=== PATIENT | female | born 1955 | race Caucasian/White ===

== ENCOUNTER → 2024-10-07 | Outpatient (CLI) | payer MEDICARE ==
--- NOTE | 2024-10-07 13:57 | CT ---
INDICATION: Patient age:Female; 69 years old; Reason for study: [facility] Protocol for right knee replacement, M17.11 PRIMARY OSTEOARTHRITIS, RIGHT KNEE ; [facility]. COMPARISON: None TECHNIQUE: Thin section axial CT imaging of the entire right lower extremity was performed per [facility] protocol, wi thout the administration of IV contrast. Additional axial images of the bilateral hips and ankles wit h other knee were also obtained. Reformatted images in coronal and sagittal views obtained. FINDINGS: There is no evidence of acute fracture or dislocation. The hips show a mild osteoarthritic change with some subchondral cystic changes in the acetabulum. Left knee arthroplasty change on correspondence representative radiograph. Tricompartmental joint space narrowing with subchondral cystic changes and marginal osteophytosis of the right knee. Most pronounced involving the medial tibiofemoral joint space. Consistent with modera te osteoarthritic change. Small suprapatellar joint effusion. Rosales's cyst identified measuring up to 2.5 cm. The ankles grossly unremarkable. Bilateral plantar calcaneal enthesophytes. The visualized soft tissues appear grossly unremarkable within the limits of unenhanced CT. Sigmoid d iverticulosis. Calcifications within the suspected partially visualized right ovary. Partially visual ized suspected left ovarian 3.1 cm cystic lesion. IMPRESSION: 1. [facility] protocol for right knee joint replacement. 2. Suspected left ovarian cystic 3.1 cm lesion. Pelvic ultrasound is recommended. [facility], , 10/07/2024 1:55 PM
[2024-10-07 14:49] LABS: HCT 42.3 % (34.0-46.0); HGB 13.7 gm/dL (11.4-16.0); MCH 31.5 pg (25.0-35.0); MCHC 32.4 g/dL (31.0-37.0); MCV 97.3 fL (80.0-100.0); Mean Platelet Volume 7.4; Platelet Count 340 k/uL (150-450); RBC 4.34 m/uL (3.80-5.40); RDW 12.7 % (11.5-15.5); WBC 8.1 k/uL (3.8-10.6)
[2024-10-07 15:20] LABS: INR 0.9 (<1.2); Partial Thromboplastin Time 23.7 sec (22.0-30.0); Prothrombin Time 10.1 sec (10.0-12.5)
== END | disposition home or self-care (01) ==
LOC: RADCTMAIN 13:09
PROVIDERS: ATTEND Orthopaedic Surgery
DX: Z01.818 Encounter for other preprocedural examination (principal); Z22.322 Carrier or suspected carrier of Methicillin resistant Staphylococcus aureus; M17.12 Unilateral primary osteoarthritis, left knee; Z96.651 Presence of right artificial knee joint
CPT/HCPCS: 85027; 85610; 85730; 87070

== ENCOUNTER → 2024-10-22 | Outpatient (CLI) | payer MEDICARE ==
[2024-10-22 16:14] LABS: ALT 20 U/L (8-44); AST 20 U/L (13-35); Albumin 4.4 g/dL (3.8-4.9); Albumin/Globulin Ratio 1.63 Ratio (1.60-3.17); Alkaline Phosphatase 56 U/L (41-126); BUN/Creat Ratio 22.29 Ratio (12.00-20.00); Blood Urea Nitrogen 15.6 mg/dL (9.0-27.0); Calcium 10.2 mg/dL (8.7-10.3); Carbon Dioxide 26.6 mmol/L (21.6-31.8); Chloride 104 mmol/L (96-109); Globulin 2.7 g/dL (1.6-3.3); Glucose 127 mg/dL (70-110); Potassium 4.7 mmol/L (3.5-5.5); Sodium 142 mmol/L (135-145); Total Bilirubin 0.3 mg/dL (0.3-1.2); Total Protein 7.1 g/dL (6.2-8.2)
== END | disposition home or self-care (01) ==
LOC: LABWHC1 09:05
PROVIDERS: ATTEND Orthopaedic Surgery
DX: Z01.812 Encounter for preprocedural laboratory examination (principal); E11.9 Type 2 diabetes mellitus without complications
CPT/HCPCS: 36415; 80053; 83036

== ENCOUNTER 2024-10-24 08:04 | Day surgery (SDC) | payer MEDICARE ==
[~2024-10-24 08:04] MED LIST: DEXAMETHASONE SOD PHOSPHATE 10 MG/ML 1 ML VIAL IV PRN; HYDROmorphone 0.5 MG/0.5 ML SYRINGE IVP PRN; LIDOCAINE 1% (10MG/ML) FOR IV START INTRADERMA PRN; ONDANSETRON 4 MG/2 ML VIAL IVP PRN; TRANEXAMIC 1,000 MG/100ML-NACL 1,000 MG in SALINE 1 100ML.BAG IV PRN; TRANEXAMIC 1,000 MG/100ML-NACL 1,000 MG in SALINE 1 100ML.BAG IVPB PRN
[2024-10-24 09:02] LABS: Glucose,Whole Blood 122 mg/dL (70-110)
[2024-10-24] MEDS: IV FLUID CONTINUATION 1,000 ML IV ONE (09:05)
[2024-10-24] MEDS: LACTATED RINGERS 1,000 ML IV SCH (09:10)
[2024-10-24] MEDS: ACETAMINOPHEN TAB 500 MG TAB PO PRN (09:18)
[2024-10-24] MEDS: DOCUSATE 100 MG CAP PO PRN (09:18)
[2024-10-24] MEDS: oxyCODONE ER 10 MG TAB.ER.12H PO PRN (09:18)
[2024-10-24] MEDS: MIDAZOLAM 2 MG/2 ML VIAL IV ONE (09:25)
[2024-10-24] MEDS: HYDROCORTISONE SUCCINATE 100 MG/2 ML VIAL IV STA (09:33)
[2024-10-24] MEDS: FAMOTIDINE 20 MG/2 ML VIAL IVP PRN (09:35)
[2024-10-24] MEDS: KETOROLAC 15 MG/ML 1 ML VIAL IVP PRN (09:35)
[2024-10-24] MEDS: ONDANSETRON 4 MG/2 ML VIAL IVP ONE (09:35)
[2024-10-24] MEDS ORDERED: PHENYLEPHRINE-0.9% NACL SYG 1,000 MCG/10 ML SYRINGE ONE (09:45)
[2024-10-24] MEDS ORDERED: TRANEXAMIC 1,000 MG/100ML-NACL PREMIX BAG ONE (09:45)
[2024-10-24] MEDS ORDERED: MIDAZOLAM 2 MG/2 ML VIAL ONE (09:45)
[2024-10-24] MEDS ORDERED: PROPOFOL 10 MG/ML 20 ML VIAL IV ONE (09:45)
[2024-10-24] MEDS ORDERED: DEXAMETHASONE SOD PHOSPHATE 4 MG/ML 1 ML VIAL ONE (09:45)
[2024-10-24] MEDS ORDERED: ROPIVACAINE 5 MG/ML 30 ML VIAL ONE (09:45)
[2024-10-24] MEDS: ROPIVACAINE/EPI/CLONIDINE/KET 50 ML SYRINGE MISCELLANE PRN (10:21)
[2024-10-24] MEDS: LACTATED RINGERS 1,000 ML IV ONE (10:44)
[2024-10-24] MEDS ORDERED: bisacodyL 10 MG SUPP RECTAL PRN (11:29)
[2024-10-24] MEDS ORDERED: hydrOXYzine pamoate 25 MG CAP PO PRN (11:29)
[2024-10-24] MEDS ORDERED: NA PHOS,M-B/NA PHOS,DI-BA 133 ML ENEMA RECTAL PRN (11:29)
[2024-10-24] MEDS ORDERED: ONDANSETRON 4 MG/2 ML VIAL IVP PRN (11:29)
[2024-10-24] MEDS ORDERED: HYDROmorphone 0.5 MG/0.5 ML SYRINGE IVP PRN ×2 (11:29)
[2024-10-24] MEDS ORDERED: NALOXONE 0.4 MG/ML 1 ML VIAL IV PRN (11:29)
[2024-10-24] MEDS ORDERED: HYDROcodone/APAP 5-325MG 1 EACH TAB PO PRN (11:29)
[2024-10-24] MEDS ORDERED: MAGNESIUM HYDROXIDE 2,400 MG/30 ML CUP PO PRN (11:29)
--- NOTE | 2024-10-24 11:29 | P.OP ---
Date of Procedure: 10/24/24 Preoperative Diagnosis: Severe right knee osteoarthritis Postoperative Diagnosis: Same Procedure(s) Performed: 1. Right total knee arthroplasty 2. Computer assisted musculoskeletal navigation using CT/MRI images Implants: 1. [place] [employer] CR Femur Size #5 2. [place] [employer] [place] Tibial Base Size #4 3. [place] [employer] CS poly Size #4, 9-mm 4. [place] [employer] all poly patella, Size #32 Anesthesia: regional, spinal Surgeon: Damien Garnett Cripple Cutter #1: Juan Dunham Estimated Blood Loss (ml): 100 IV fluids (ml): 800 Pathology: none sent Condition: stable Disposition: PACU Indications for Procedure: I met with the patient preoperatively in the office setting and discussed treatment of their symptomatic knee arthritis. They failed a long course of nonsurgical treatment and elected to proceed with an elective total knee replacement. I discussed the potential risks and complications at length and gave them ample time to ask questions. Risks discussed included: risks from anesthesia, superficial site surgical infection, acute and/or chronic periprosthetic joint infection, delayed wound healing, drainage, wound necrosis, instability, stiffness, stiffness requiring manipulation and/or revision surgery, damage to local blood vessels or nerves, aseptic loosening of the implants, extensor mechanism issues including disruption, patellar maltracking, avascular necrosis etc., continued or worsened knee pain, generalized dissatisfaction with surgical outcome, need for revision surgery, an inability to regain preinjury level of function, DVT, PE, other medical complications, and possibly loss of life or limb. The patient voiced their understanding that while these are the most common complications other less common complications are possible. They provided both their verbal and written consent to go forward with surgery. Operative Findings: Severe tri-compartmental knee osteoarthritis Description of Procedure: The patient was identified in preoperative holding and the correct operative extremity was verified and marked with a marker. I reviewed the consent form with the patient at length. All of their questions were answered. The patient was given a block by anesthesia. They were then brought back to the operating room. They were transferred onto the operating room table where a general anesthetic, preoperative antibiotics, and tranexamic acid were administered by anesthesia. A tourniquet was applied to the proximal aspect of the operative extremity. The contralateral extremity was padded under the heel and secured to the operating room table with a nonsterile blue towel and tape. The ipsilateral arm was carefully draped across the patient's chest and secured with a pillow and foam. A post was applied over the lateral aspect of the ipsilateral thigh and a bolster was placed under the ipsilateral foot. I verified that the operative extremity was stable and the knee was flexed to 90. The operative extremity was then placed in a leg conde, nonsterile drapes were applied, and the extremity was prepped and draped sterilely in the standard sterile fashion. Prior to starting surgery timeout was performed identifying the correct patient, operative extremity, and procedure. The leg was then elevated, exsanguinated with an Esmarch bandage, and the tourniquet was inflated. An anterior midline incision was made sharply with a scalpel. Once I had dissected deep to the superficial fascial layer medial and lateral flaps were elevated. A medial parapatellar arthrotomy was created. Upon opening the knee joint there were diffuse arthritic changes in all 3 compartments. The anterior horn of the medial meniscus were sharply released and a medial release was performed around the posterior medial corner of the knee to facilitate retractor placement. The fat pad was excised with electrocautery. The patella was found to be severely arthritic and a provisional cut was made with a sagittal saw to facilitate mobilization of the extensor mechanism during the procedure. Remnants of the ACL and PCL were then excised from the notch. 4 mm pins were then placed within the incision in the medial distal femur and proximal tibia. Arrays were applied to the pins and I verified they were completely tightened. The knee was then registered with the [employer] robot and manipulations in implant position were made to balance the knee and opitmize implant position. Using the Ronny robotic saw all cuts were made in accordance with our plan. After all bony fragments had been removed the cuts were verified with the planar probe. The tibia was then subluxed forward and sized. The knee was brought into flexion and a lamina gameroom technician was placed to allow removal of the meniscal remnants both medially and laterally as well as posterior osteophytes. Local anesthetic was then infiltrated around the joint capsule. Trial implants were then placed within the knee. Range of motion and collateral ligament tension was then evaluated. Adjustments in implant size and position were then made accordingly. Once the knee was felt to be appropriately balanced the Ronny pins were removed. The patella was then recut, sized, and punched. A trial patellar button was then placed. With the trial components in place, the patella tracked midline. The femur was then drilled and the trial component removed. The trial tibial component was then appropriately rotated, pinned, and prepared for the keel. All trial components were then removed from the knee. The knee was thoroughly irrigated with pulsatile lavage. Cement was prepared via vacuum mixing in a bowl on the back table. I then hand pressurized cement into the femur and tibia and placed the implants beginning with the tibial base tray and poly liner, femoral component, and finally the patellar button. All extruded cement was removed including from the pin sites. Once the cement had hardened the knee was evaluated one final time with the final polyethylene liner in place. The knee had full extension and flexion and felt stable to varus and valgus stress throughout the arc of motion. The tourniquet was released and with the tourniquet down the patella tracked midline. All bleeders were controlled with electrocautery. The knee was then soaked for 3 minutes with a dilute Betadine soak. The knee was thoroughly irrigated using 3 L of sterile saline and pulsatile lavage. The extensor mechanism was then reapproximated using pop off Vicryl sutures followed by a running barbed suture. The knee was then closed in layers with a 0 strata fix for the deep fascial layer, 2-0 strata fix for the superficial subcutaneous layer and Monocryl and Steri-Strips for the skin. A sterile dressing was applied. I verified that all instrument, sponge, and sharp counts were correct. The patient was then transferred off the operating room table, extubated, and brought to recovery having tolerated the procedure well. Juan Dunham PA-C was required as a skilled operational assistant for patient positioning, draping, exposure, retraction, closure of wound and application of dressing PLAN: The patient can weight-bear as tolerated on the operative extremity. DVT prophylaxis with aspirin 81 mg twice a day based on preoperative risk stratification. Internal medicine for perioperative medical management. 2 doses of post-operative antibiotics. Physical therapy for gait training. Follow-up in the office in 2 weeks for wound check and x-rays of the knee including an AP and lateral.
--- NOTE | 2024-10-24 13:13 | XR ---
EXAMINATION TYPE: XR knee limited RT DATE OF EXAM: 10/24/2024 12:19 PM COMPARISON: None. CLINICAL INDICATION: Female, 69 years old with history of Evaluation for Postop abnormality and align ment, TECHNIQUE: 2 view(s) obtained. FINDINGS: Tibial femoral compartment [address] place[address] No acute fractures or dislocations evident. Postsurgical soft tis iona changes are evident. IMPRESSION: 1. No acute osseous abnormality post right knee replacement. [facility], , 10/24/2024 1:11 PM
[2024-10-24] MEDS: HYDROcodone/APAP 10-325MG 1 EACH TAB PO PRN (14:50)
[2024-10-24] MEDS: DEXAMETHASONE SOD PHOSPHATE 4 MG/ML 1 ML VIAL IV ONE (15:38)
[2024-10-24] MEDS: droPERidol 5 MG/2 ML VIAL IVP ONE (15:38)
[2024-10-24] MEDS: SODIUM CHLORIDE 0.9% 1,000 ML IV SCH (15:44)
[2024-10-24] MEDS: HYDROmorphone 0.5 MG/0.5 ML SYRINGE IVP PRN (16:59)
[2024-10-24] MEDS: ASPIRIN 81 MG PO SCH (21:04)
[2024-10-24] MEDS: SENNOSIDES-DOCUSATE SODIUM 1 EACH TAB PO SCH (21:04)
[2024-10-24] MEDS: diazePAM 5 MG TAB PO PRN (21:06)
[2024-10-25 07:21] VITALS: BP 131/73; PULSE 61; RESP 15; TEMP 98.2
--- NOTE | 2024-10-25 07:39 | P.DS ---
Providers Date of admission: 10/24/2024 Attending physician: Damien Garnett Consults: 10/24/24 11:29 Consult Physician Routine Consulting Provider: Sandeep Tapia Consult Reason/Comments: post op medical management Do you want consulting provider notified?: Already Contacted Primary care physician: Yojana Young [facility] Course: The patient is a very pleasant previously healthy 69-year-old female. She was admitted under my care and underwent an uncomplicated total knee replacement. Puncture tissues transferred to the orthopedic floor. She received 2 doses of postoperative antibiotics. She was transitioned from IV to oral pain medication. She was seen by internal medicine. I saw the patient on postoperative day #1 and she was doing well. Her dressing was intact. She had mild swelling in her leg. Femoral nerve function was intact. She is able to actively plantarflex and dorsiflex her ankle and her toes. She worked with physical therapy and a well-padded she was ultimately cleared for discharge home. Patient Condition at Discharge: Good Plan - Discharge Summary Discharge Rx Participant: No New Discharge Prescriptions: New Aspirin 81 mg PO BID #60 tab Docusate [Colace] 100 mg PO BID #60 capsule HYDROcodone/APAP 5-325MG [Dendron 5-325] 1 - 2 tab PO Q6HR PRN #56 tab PRN Reason: Pain Omeprazole [PriLOSEC] 40 mg PO DAILY #30 cap Ondansetron [Zofran] 4 mg PO Q8HR PRN #20 tab PRN Reason: Nausea Celecoxib [Celebrex] 400 mg PO BID #60 cap No Action predniSONE 2.5 mg PO Q2D [place] Extract 1 cap PO DAILY Celecoxib [CeleBREX] 200 mg PO DAILY PRN PRN Reason: pain, swelling predniSONE 5 mg PO Q2D Milk Thistle 150 mg PO DAILY Calcium Carbonate/Vitamin D3 [Calcium 600 mg-Vit D3 10 mcg (400 Unit)] 1 each PO DAILY Discharge Medication List Calcium Carbonate/Vitamin D3 [Calcium 600 mg-Vit D3 10 mcg (400 Unit)] 1 each PO DAILY 10/21/24 [History] Celecoxib [CeleBREX] 200 mg PO DAILY PRN 10/21/24 [History] Milk Thistle 150 mg PO DAILY 10/21/24 [History] [place] Extract 1 cap PO DAILY 10/21/24 [History] predniSONE 2.5 mg PO Q2D 10/21/24 [History] predniSONE 5 mg PO Q2D 10/21/24 [History] Aspirin 81 mg PO BID #60 tab 10/25/24 [Rx] Celecoxib [Celebrex] 400 mg PO BID #60 cap 10/25/24 [Rx] Docusate [Colace] 100 mg PO BID #60 capsule 10/25/24 [Rx] HYDROcodone/APAP 5-325MG [Dendron 5-325] 1 - 2 tab PO Q6HR PRN #56 tab 10/25/24 [Rx] Omeprazole [PriLOSEC] 40 mg PO DAILY #30 cap 10/25/24 [Rx] Ondansetron [Zofran] 4 mg PO Q8HR PRN #20 tab 10/25/24 [Rx] Follow up Appointment(s)/Referral(s): Damien Garnett MD [Medical Doctor] - 2 Weeks Activity/Diet/Wound Care/Special Instructions: 1. Weight-bear as tolerated on your operative extremity unless instructed otherwise. Use a walker or other assistive device to ambulate. 2. Leave surgical dressing in place. If your dressing becomes saturated with blood, there is drainage, or the dressing becomes loose please contact the office. 3. It is okay to shower with your surgical dressing, but do not submerge in water (no hot tubs, bath's, swimming etc.) 4. Make sure to take her blood clot prevention medication as prescribed (aspirin, Eliquis, Xarelto, and Plavix are commonly prescribed medications for blood clot prevention) 5. While taking Dendron or Percocet for pain make sure you're taking a stool softener (Colace) and drink lots of water. 6. Keep all follow-up appointments as scheduled. You will usually be seen in 1-2 weeks following surgery. 7. Please contact the office with any questions or concerns [phone] Discharge Disposition: HOME WITH HOME HEALTH SERVICES
[2024-10-25] MEDS: predniSONE 2.5 MG TAB PO SCH (07:58)
[2024-10-25 09:39] LABS: Basophils # (A) 0.04 X 10*3/uL (0.00-0.10); Basophils % (A) 0.4 %; Eosinophils # (A) 0.08 X 10*3/uL (0.04-0.35); Eosinophils % (A) 0.7 %; HCT 37.2 % (37.2-46.3); HGB 11.5 g/dL (12.0-15.0); Lymphocytes % (A) 13.7 %; MCH 30.7 pg (27.0-32.0); MCHC 30.9 g/dL (32.0-37.0); MCV 99.2 FL (80.0-97.0); Mean Platelet Volume 10.7 FL (9.5-12.2); Monocytes # (A) 0.98 X 10*3/uL (0.20-1.00); NRBC Per 100 WBC 0 X 10*3/uL (0.00-0.01); Neutrophils # (A) 8.29 X 10*3/uL (1.80-7.70); Neutrophils % (A) 75.7 %; Platelet Count 283 X 10*3/uL (140-440); RBC 3.75 X 10*6/uL (4.10-5.20); RDW 12.7 % (11.5-14.5); WBC 10.94 X 10*3/uL (4.50-10.00)
--- NOTE | 2024-10-25 15:05 | P.CONS ---
History of Present Illness - Reason for Consult Consult date: 10/25/24 Medical management Requesting physician: Damien Garnett - Chief Complaint Right knee surgery - History of Present Illness This is a pleasant 69-year-old patient who follows with Dr. Yojana Young. Chronic medical condition include hepatitis C that was treated successfully, polymyalgia rheumatica for which patient is on steroids/prednisone, primary osteoarthritis. Patient stopped smoking 2 weeks ago. Patient yesterday underwent right total knee arthroplasty. Having some pain. No nausea vomiting. Did tolerate some breakfast this morning. Also did amb ulate. at the bedside. No cardiac symptoms. No cardiac history. Review of systems: GEN.: None EYES: None HEENT: None NECK: None RESPIRATORY: None CARDIOVASCULAR: None GASTROINTESTINAL: None GENITOURINARY: None MUSCULOSKELETAL: Joint pain including right knee LYMPHATICS: None Social history: Stopped smoking 2 weeks ago. Smoked for about 15 to 20 years less than a pack a day. Alcohol occasionally. . Physical examination: VITAL SIGNS: 98.2, 61, 15, 131 x 73, 99% room air GENERAL: BMI 24.4, sitting up in the recliner comfortable. EYES: Pupils equal. Conjunctiva zainab l. HEENT: External appearance of nose and ears normal, oral cavity grossly normal. NECK: JVD not raised; masses not palpable. HEART: First and second heart sounds are normal; no edema. LUNGS: Respiratory rate normal; clear to auscultation. ABDOMEN: Soft, nontender, liver spleen not palpable, no masses palpable. PSYCH: Alert and oriented x3; mood and affect zainab l. MUSCULOSKELETAL:No Clubbing/cyanosis;muscles-grossly intact. Dressing of the right knee. Evidence of OA NEUROLOGICAL: Cranial nerves grossly intact; no facial asymmetry, power and sensation grossly intact. LYMPHATICS: No lymph nodes palpable in the axilla and neck INVESTIGATIONS, reviewed in the clinical context: October 25: White count 10.9 hemoglobin 11.5 platelets 283 Assessment plan: -Right total knee arthroplasty Pain controlled. Aspirin for DVT prophylaxis. -Myasthenia gravis Continue with prednisone 2.5 mg and 5 mg alternate day. -Primary osteoarthritis Celebrex. -Probable acute postprocedure blood loss anemia Ferrous sulfate Care was discussed with patient at the bedside. Questions answered. Follow-up with PCP for discharge. Thank you Dr. Garnett Past Medical History Past Medical History: Liver Disease, Osteoarthritis (OA) Additional Past Medical History / Comment(s): polymyalgia rheumatica, past hx. hepatitis C-was tx. & no further problems, had stress test today due to something w/recent EKG, chronic steroid use for 8-9 months History of Any Multi-Drug Resistant Organisms: None Reported Past Surgical History: Section, Joint Replacement Additional Past Surgical History / Comment(s): C/S x2, left knee replaced Past Anesthesia/Blood Transfusion Reactions: No Reported Reaction Past Psychological History: No Psychological Hx Reported Smoking Status: Former smoker Past Alcohol Use History: Occasional Additional Past Alcohol Use History / Comment(s): quit smoking 2 weeks ago, smoked for 15-20 yrs., <ppd Past Drug Use History: None Reported - Past Family History Mother Family Medical History: No Reported History Medications and Allergies Home Medications Medication Instructions Recorded Confirmed Type Calcium Carbonate/Vitamin D3 1 each PO DAILY 10/21/24 10/24/24 History [Calcium 600 mg-Vit D3 10 mcg (400 Unit)] Milk Thistle 150 mg PO DAILY 10/21/24 10/21/24 History [place] Extract 1 cap PO DAILY 10/21/24 10/21/24 History predniSONE 2.5 mg PO Q2D 10/21/24 10/21/24 History predniSONE 5 mg PO Q2D 10/21/24 10/24/24 History Aspirin 81 mg PO BID #60 tab 10/25/24 Rx Celecoxib [Celebrex] 400 mg PO BID #60 cap 10/25/24 Rx Docusate [Colace] 100 mg PO BID #60 capsule 10/25/24 Rx Ferrous Sulfate [Feosol] 325 mg PO DAILY #30 tab 10/25/24 Rx HYDROcodone/APAP 5-325MG [[place] 1 - 2 tab PO Q6HR PRN #56 tab 10/25/24 Rx 5-325] Omeprazole [PriLOSEC] 40 mg PO DAILY #30 cap 10/25/24 Rx Ondansetron [Zofran] 4 mg PO Q8HR PRN #20 tab 10/25/24 Rx Sennosides-Docusate Sodium 2 each PO HS #30 tab 10/25/24 Rx [Senokot-S] Allergies Allergy/AdvReac Type Severity Reaction Status Date / Time coconut Allergy facial Verified 10/24/24 08:34 swelling, shortness of breath Penicillins Allergy Unknown Verified 10/24/24 08:34 Childhood Physical Exam Vitals: Vital Signs Temp Pulse Pulse Resp BP Pulse Ox 10/25/24 07:35 61 15 10/25/24 07:19 98.2 F 61 15 131/73 99 10/25/24 00:20 97.4 F L 74 18 128/70 96 10/24/24 18:54 98.0 F 64 18 105/62 96 10/24/24 16:29 63 18 130/77 97 10/24/24 14:00 73 18 130/77 96 10/24/24 13:30 79 18 139/79 98 10/24/24 13:00 75 18 131/79 98 10/24/24 12:30 75 18 129/74 97 10/24/24 12:18 86 18 130/67 97 10/24/24 12:01 67 18 129/63 96 10/24/24 11:46 97.5 F L 68 16 125/62 99 Intake and Output 10/24/24 10/25/24 10/25/24 22:59 06:59 14:59 Intake Total 760 Balance 760 Intake: Oral 760 Other: # Voids 1 3 Results CBC & Chem 7: 10/25/24 03:06 Labs: Abnormal Lab Results - Last 24 Hours (Table) 10/25/24 Range/Units 03:06 WBC 10.94 H (4.50-10.00) X 10*3/uL RBC 3.75 L (4.10-5.20) X 10*6/uL Hgb 11.5 L (12.0-15.0) g/dL MCV 99.2 H (80.0-97.0) FL MCHC 30.9 L (32.0-37.0) g/dL Immature Gran # 0.05 H (0.00-0.04) X 10*3/uL Neutrophils # 8.29 H (1.80-7.70) X 10*3/uL
[2024-10-26] MEDS ORDERED: predniSONE 2.5 MG TAB PO SCH (09:00)
--- NOTE | 2024-10-26 16:12 | P.ANPRN ---
Procedure Note - Anesthesia - Nerve Block Performed Right Adductor Canal Single Time Out Performed: Yes Date of Procedure: 10/24/24 Procedure Start Time: Procedure Stop Time: Location of Patient: PreOp Indication: Acute Post-Operative Pain, Requested by Surgeon Sedation Type: Sedate with meaningful contact maintained Preparation: Sterile Prep Position: Supine Needle Types: Pajunk Needle Gauge: 21 Ultrasound used to visualize needle placement: Yes Ultrasound used to observe medication spread: Yes Resistance on Injection: Normal Image Stored and Saved: Yes Events: Uneventful and Well Tolerated (Ropivacaine 0.5% 20 cc was dexamethasone 4 mg)
--- NOTE | 2024-10-26 16:13 | P.ANPRN ---
Procedure Note - Anesthesia - Nerve Block Performed Right Nickck Single Time Out Performed: Yes Date of Procedure: 10/24/24 Procedure Start Time: Procedure Stop Time: Location of Patient: PreOp Indication: Acute Post-Operative Pain Sedation Type: Sedate with meaningful contact maintained Preparation: Sterile Prep Position: Supine Catheter: Indwelling Needle Types: Pajunk Needle Gauge: 21 Ultrasound used to visualize needle placement: Yes Ultrasound used to observe medication spread: Yes Blood Aspirated: No Pain Paresthesia on Injection Noted: No Resistance on Injection: Normal Image Stored and Saved: Yes Events: Uneventful and Well Tolerated (Ropivacaine 0.5% 20 cc plus dexamethasone 4 mg)
== END 2024-10-25 12:39 | disposition home health service (06) ==
LOC: OR 08:04 → 4SSUR 14:27 → OR 10-25 12:39
PROVIDERS: ATTEND Orthopaedic Surgery
DX: M17.11 Unilateral primary osteoarthritis, right knee (principal); K73.9 Chronic hepatitis, unspecified; Z84.89 Family history of other specified conditions; Z96.651 Presence of right artificial knee joint; Z01.810 Encounter for preprocedural cardiovascular examination; Z87.891 Personal history of nicotine dependence
CPT/HCPCS: 97162; 85025; 73560; 27447; J2250; J1720; J0690 ×2; J2405; J3490; J1885; J7512; J1171 ×2; 64447; 64999

== ENCOUNTER → 2024-12-03 | Outpatient (CLI) | payer MEDICARE | END | disposition home or self-care (01) | LOC: RADUSWWP 08:21 | PROVIDERS: ATTEND Family Medicine | DX: Z53.9 Procedure and treatment not carried out, unspecified reason (principal) ==